=== PATIENT | male | born 1955 | race Caucasian/White ===

== ENCOUNTER → 2019-01-10 07:28 | Outpatient (CLI) | payer MEDICARE, SELFPAY ==
--- NOTE | 2019-01-10 07:31 | DI.US.S_ITS ---
PROCEDURE: US ABD AORTA ANEURYSM SCREEN INDICATIONS: HISTORY SMOKING TECHNIQUE: Real time scanning was performed of the aorta and iliac arteries, with image documentation. COMPARISON: None. FINDINGS: Aorta: Proximal aortic diameter measures 2.7 cm. Mid-aorta measures 1.9 cm. Distal aortic diameter is 1.6 cm. Iliac arteries: Right common iliac artery measures 1.2 cm. Left common iliac artery measures 1.2 cm. IMPRESSION: No abdominal aortic or proximal common iliac artery aneurysm. Dictated by: Brian Wick [facility] Interpreted: Pat Barcenas MD on 01/10/2019 at 8:10 Approved by: Pat Barcenas MD, PhD on 01/10/2019 at 14:36
== END ==
PROVIDERS: PCP Student in an Organized Health Care Education/Training Program; Visit Provider Student in an Organized Health Care Education/Training Program
DX: Z13.6 Encounter for screening for cardiovascular disorders (principal); Z87.891 Personal history of nicotine dependence
CPT/HCPCS: 76706

== ENCOUNTER → 2019-02-09 08:54 | Outpatient (CLI) | payer MEDICARE, SELFPAY ==
[2019-02-09 10:21] LABS: Vitamin D 25 Hydroxy (D3) 49.4 ng/mL (30.0-100.0)
[2019-02-09 10:38] LABS: Prostate Specific Antigen Scrn 0.791 ng/mL (0.1-4.0)
== END ==
PROVIDERS: PCP Student in an Organized Health Care Education/Training Program; Visit Provider Student in an Organized Health Care Education/Training Program
DX: Z12.5 Encounter for screening for malignant neoplasm of prostate (principal); E55.9 Vitamin D deficiency, unspecified
CPT/HCPCS: 36415; 82306; G0103

== ENCOUNTER → 2019-12-19 10:09 | Outpatient (CLI) | payer MEDICARE, SELFPAY ==
[2019-12-19 11:11] LABS: BUN Creatinine Ratio 14.5 (6-22); Blood Urea Nitrogen 16 mg/dL (9-20); Calcium 10.1 mg/dL (8.4-10.2); Carbon Dioxide 29 mmol/L (22-32); Chloride 96 mmol/L (98-107); Estimated Glomerular Filt Rate > 60.0 mL/min (>60); Glucose 104 mg/dL (80-110); HEMOLYSIS < 15 (0-50); Potassium 4.9 mmol/L (3.4-5.1); Sodium 135 mmol/L (137-145)
== END ==
PROVIDERS: PCP Student in an Organized Health Care Education/Training Program; Visit Provider Student in an Organized Health Care Education/Training Program
DX: I10 Essential (primary) hypertension (principal)
CPT/HCPCS: 36415; 80048

== ENCOUNTER 2020-01-17 07:36 | Day surgery (SDC) | payer MEDICARE, SELFPAY ==
--- NOTE | 2020-01-17 | PATH_ITS ---
[facility] Accession Number: [id number] . 01 Material submitted: . colon - COLON POLYP AT 50CM . 02 Diagnosis: Colon Polyp at 50 cm, Biopsy: Portions of serrated lesion x3, favor sessile serrated adenoma. MRV 01/18/2020 1040 Local . 02 Electronically signed: . Peg De La Garza MD, Pathologist NPI- [id number] . 01 Gross description: . COLON POLYP AT 50CM: Received in formalin are 3 fragment(s) of gudino, soft tissue measuring 0.1 x 0.1 x 0.1 cm in aggregate submitted entirely in 1 cassette(s) /[facility] 01/17/2020 2227 Local . 02 Pathologist provided ICD-10: K63.5 . 02 CPT . 233186 Performed at: 01 [facility] [address] [id number] MD Caleb Song MD Phone: [phone] Performed at: 02 [facility] [address] [place] [employer], [place] [id number] MD Sherrill Rubi MD Phone: [phone]
[2020-01-17 07:56] VITALS: BMI 29.0
[2020-01-17 08:02] VITALS: BP 133/84; PULSE 66; RESP 16; TEMP 36.1; O2SAT 99
[2020-01-17] MEDS: SODIUM CHLORIDE 0.9% 1,000 ML 200 ML IV (08:09)
--- NOTE | 2020-01-17 08:57 | PM.HP.1 ---
History of Present Illness History of Present Illness Date Patient Seen: 01/17/20 Time Patient Seen: 08:57 Chief complaint: [id number] SCREENING COLONOSCOPY Narrative: The patient is a gentleman who had a colonoscopy 5 years ago. He has a history of polyps. No family history of colon cancer. He is here for screening exam. Patient History Medical History Colon polyps (Chronic ~2009) Hyperlipidemia (Chronic ~2016) Hypertension (Chronic ~2004) Surgical History Anesthesia (Resolved) Status post knee surgery Tubular adenoma (Resolved ~2008) Family & Social History Family History Father Coronary artery disease involving [place] coronary artery of [place] heart, angina presence unspecified Mother No problems noted. Social History: household members spouse Tobacco & Substance use: Smoking Status Former smoker alcohol intake current alcohol intake frequency 0-2 drinks per day Substance Use Type does not use Meds Home Medications and Allergies Home Medications Medication Instructions Recorded Confirmed Type cholecalciferol (vitamin D3) 2,000 iu PO QDAY #0 09/26/12 01/17/20 History [Vitamin D3] multivitamin 1 cap PO DAILY #0 09/26/12 01/17/20 History aspirin 81 mg tablet,delayed 81 mg PO DAILY 04/10/18 01/17/20 History release atorvastatin 40 mg tablet 40 mg PO HS #90 tab 10/18/19 01/17/20 Rx lisinopril 40 mg tablet 40 mg PO Q DAY #90 tab 10/18/19 01/17/20 Rx metoprolol succinate 100 mg 100 mg PO QDAY #90 tab 12/13/19 01/17/20 Rx tablet,extended release 24 hr chlorthalidone 25 mg tablet 12.5 mg PO QAM #45 tab 12/19/19 01/17/20 Rx sildenafil (pulm.hypertension) 20 20 mg PO TID PRN #30 tab 12/19/19 01/17/20 Rx mg tablet Allergies Allergy/AdvReac Type Severity Reaction Status Date / Time erythromycin base Allergy Unknown Hand Verified 01/17/20 07:52 swelling Review of Systems Review of Systems ROS: Yes All systems reviewed with the patient and are negative except as otherwise documented Eyes Comments: Wears glasses Exam Vital Signs (past 8 hours): - 01/17/20 08:02 Temperature 97.0 F L Pulse Rate 66 Respiratory Rate 16 Blood Pressure 133/84 Pulse Oximetry 99 Oxygen Delivery Method Room Air Narrative Exam Narrative: Pleasant cooperative patient no apparent distress. Lungs are clear to auscultation. No rales or rhonchi. Heart regular rate and rhythm no murmur gallop. Abdomen is soft nontender without mass. No obvious hernias. Patient is alert and oriented x3. Assessment & Plan Assessment & Plan narrative: The patient for a screening colonoscopy. I have discussed the procedure with them. Risks of bleeding, perforation which would necessitate major operation, failure to find remove all lesions, the potential tattoo were all discussed. All questions were answered. They wished to proceed.
--- NOTE | 2020-01-17 08:58 | PM.PREOP ---
Pre-operative Note Interval Note History & Physical reviewed/Exam performed by Physician: Yes Changes to H&P: No ASA Class (for procedural sedation): II
[2020-01-17] MEDS: fentaNYL 250 MCG/5 ML INJ IV (09:25)
[2020-01-17] MEDS: MIDAZOLAM 5 MG/5 ML VIAL IV (09:26)
--- NOTE | 2020-01-17 09:28 | PM.OP.ENDO ---
Operative Date/Time/Diagnoses Date of procedure: 01/17/20 Time of procedure: 09:28 Pre-op diagnosis: Screening examination. Last exam 5 years ago. The patient has personal history of polyps. Post-op diagnosis: same (Diverticulosis sigmoid colon. One small polyp at 50 cm from the anal verge.) Procedure & Clinicians Study performed: Colonoscopy with cold biopsy Same procedure as scheduled: Yes Indications: Screening Surgeon: Malachi Bay Procedure Notes SCOAP/Timeout: Perform Procedure in detail: The patient was placed in the left lateral decubitus position and underwent IV sedation directed by the surgeon consisting of fentanyl and Versed. Digital exam was remarkable for an enlarged hard prostate. The scope was inserted and advanced through the rectum into the sigmoid, descending, transverse, and ascending colon. The patient was noted to have sigmoid diverticulosis. The cecum was reached identified by the ileocecal valve and the appendiceal opening. The scope was gradually brought out. One Polyp were found at 50 cm from the anal verge. It was small and was removed with biopsy forceps. The scope ultimately was retroflexed in the rectum. The appearance was normal. The scope was removed and the patient tolerated the procedure well. The prep was very good Scope withdrawal time: 11 minutes total Sedation minutes: 23 Findings: diverticulosis and polyp (Small polyp at 50 cm) Specimen(s): other (Polyps) Complications: none Post-procedure Recommendations: Colonscopy in 5 years Follow up: as needed Disposition: PACU
[2020-01-17 09:32] VITALS: BP 103/69; PULSE 57; RESP 14; TEMP 36.3; O2SAT 96
[2020-01-17 09:37] VITALS: BP 99/66; PULSE 54; RESP 15; O2SAT 96
[2020-01-17 09:47] VITALS: BP 117/76; PULSE 57; RESP 15; TEMP 37.3; O2SAT 97
== END 2020-01-17 10:09 | disposition home or self-care (01) ==
PROVIDERS: PCP Student in an Organized Health Care Education/Training Program; Referring Provider Specialist; Visit Provider Specialist
PROC: 0DJD8ZZ Inspection of Lower Intestinal Tract, Via Natural or Artificial Opening Endoscopic (ICD-10-PCS; CPT 45378; principal; 2020-01-17 08:45)
DX: Z12.11 Encounter for screening for malignant neoplasm of colon (principal); N40.0 Benign prostatic hyperplasia without lower urinary tract symptoms; K57.30 Diverticulosis of large intestine without perforation or abscess without bleeding; K63.5 Polyp of colon
CPT/HCPCS: 45380; 99152; J2250; J3010

== ENCOUNTER → 2020-02-06 08:30 | Outpatient (CLI) | payer MEDICARE, SELFPAY ==
[2020-02-06 10:28] LABS: Prostate Specific Antigen Scrn 0.836 ng/mL (0.1-4.0)
== END ==
PROVIDERS: PCP Student in an Organized Health Care Education/Training Program; Referring Provider Student in an Organized Health Care Education/Training Program; Visit Provider Student in an Organized Health Care Education/Training Program
DX: Z12.5 Encounter for screening for malignant neoplasm of prostate (principal)
CPT/HCPCS: 36415; G0103

== ENCOUNTER → 2021-02-11 12:27 | Outpatient (CLI) | payer MEDICARE, SELFPAY ==
[2021-02-11] MEDS: COVID-19 VACC #1, MRNA(MOD) 100 MCG/0.5 ML VIAL IM (12:35)
== END ==
PROVIDERS: PCP Student in an Organized Health Care Education/Training Program; Visit Provider Internal Medicine
DX: Z23 Encounter for immunization (principal)
CPT/HCPCS: 0011A; 91301

== ENCOUNTER → 2021-03-11 11:55 | Outpatient (CLI) | payer MEDICARE, SELFPAY ==
[2021-03-11] MEDS: COVID-19 VACC #2, MRNA(MOD) 100 MCG/0.5 ML VIAL IM (12:05)
== END ==
PROVIDERS: PCP Student in an Organized Health Care Education/Training Program; Visit Provider Internal Medicine
DX: Z23 Encounter for immunization (principal)
CPT/HCPCS: 0012A; 91301

== ENCOUNTER → 2021-04-09 09:46 | Outpatient (CLI) | payer MEDICARE, SELFPAY ==
[2021-04-09 10:51] LABS: HEMOLYSIS < 15 (0-50)
[2021-04-09 10:59] LABS: BUN Creatinine Ratio 18.4 (6-22); Blood Urea Nitrogen 18 mg/dL (9-20); Calcium 9.8 mg/dL (8.4-10.2); Carbon Dioxide 28 mmol/L (22-32); Chloride 98 mmol/L (98-107); Estimated Glomerular Filt Rate > 60.0 mL/min (>60); Glucose 102 mg/dL (80-110); Potassium 4.3 mmol/L (3.4-5.1); Sodium 136 mmol/L (137-145)
[2021-04-09 19:37] LABS: Prostate Specific Antigen Scrn 0.777 ng/mL (0.1-4.0)
== END ==
PROVIDERS: PCP Student in an Organized Health Care Education/Training Program; Referring Provider Student in an Organized Health Care Education/Training Program; Visit Provider Student in an Organized Health Care Education/Training Program
DX: Z12.5 Encounter for screening for malignant neoplasm of prostate (principal); I10 Essential (primary) hypertension
CPT/HCPCS: 36415; 80048; G0103

== ENCOUNTER → 2021-10-15 09:56 | Outpatient (CLI) | payer MEDICARE, SELFPAY ==
--- NOTE | 2021-10-15 09:57 | DI.RAD.S_ITS ---
PROCEDURE: XR CALCANEOUS RT MIN 2V INDICATIONS: Posterior heel pain TECHNIQUE: Two views of the calcaneus were acquired. COMPARISON: None. FINDINGS: Bones: No acute fracture. Scattered degenerative subchondral sclerosis and spurring. Plantar and posterior calcaneal spurring. Chronic os peroneum Soft tissues: Unremarkable appearance IMPRESSION: Posterior and plantar calcaneal spurring. Diffuse hindfoot and midfoot joint degeneration. Dictated by: Obdulio Singh M.D. on 10/15/2021 at 15:14 Approved by: Obdulio Singh M.D. on 10/15/2021 at 15:15
== END ==
PROVIDERS: PCP Student in an Organized Health Care Education/Training Program; Referring Provider Student in an Organized Health Care Education/Training Program; Visit Provider Student in an Organized Health Care Education/Training Program
DX: M19.071 Primary osteoarthritis, right ankle and foot (principal); M77.31 Calcaneal spur, right foot; M79.671 Pain in right foot
CPT/HCPCS: 73650

== ENCOUNTER → 2021-12-21 09:43 | Outpatient (CLI) | payer MEDICARE, SELFPAY ==
--- NOTE | 2021-12-21 09:44 | DI.RAD.S_ITS ---
PROCEDURE: XR RIBS LT MIN 3V W CXR1V INDICATIONS: fall TECHNIQUE: 2 views of the left ribs were acquired, along with a single view chest. COMPARISON: None. FINDINGS: Surgical changes and devices: None. Bones and chest wall: No fractures or dislocations. No suspicious bony lesions. Overlying soft tissues appear unremarkable. Lungs and pleura: No pleural effusions or pneumothorax. Lungs appear clear. Mediastinum: Mediastinal contours appear normal. Heart size is normal. IMPRESSION: No gross displaced left rib fracture is seen. No acute cardiopulmonary pathology. Dictated by: Fidel Grace M.D. on 12/21/2021 at 10:20 Approved by: Fidel Grace M.D. on 12/21/2021 at 10:23
== END ==
PROVIDERS: PCP Student in an Organized Health Care Education/Training Program; Referring Provider Physician Assistant; Visit Provider Physician Assistant
DX: R10.9 Unspecified abdominal pain (principal)
CPT/HCPCS: 71101

== ENCOUNTER → 2022-04-28 16:24 | Outpatient (CLI) | payer MEDICARE, SELFPAY ==
[2022-04-28 17:50] LABS: BUN Creatinine Ratio 17.9 (6-22); Blood Urea Nitrogen 20 mg/dL (9-20); Calcium 9.3 mg/dL (8.4-10.2); Carbon Dioxide 27 mmol/L (22-32); Chloride 96 mmol/L (98-107); Estimated Glomerular Filt Rate > 60 mL/min (>60); Glucose 90 mg/dL (80-110); HEMOLYSIS < 15 (0-50); Potassium 4.5 mmol/L (3.4-5.1); Sodium 131 mmol/L (137-145)
== END ==
PROVIDERS: PCP Student in an Organized Health Care Education/Training Program; Referring Provider Student in an Organized Health Care Education/Training Program; Visit Provider Student in an Organized Health Care Education/Training Program
DX: Z12.5 Encounter for screening for malignant neoplasm of prostate (principal); I10 Essential (primary) hypertension
CPT/HCPCS: 36415; 80048; G0103

== ENCOUNTER → 2023-05-11 07:02 | Outpatient (CLI) | payer MEDICARE, SELFPAY ==
[2023-05-11 08:46] LABS: Add Manual Diff / Slide Review NO; Basophils Absolute Auto 0 /uL (0-100); Basophils Percent Auto 0.5 % (0-2); Eosinophils Absolute Auto 100 /uL (0-450); Hemoglobin 14.8 g/dL (13.5-17.5); Lymphocytes Absolute Auto 1700 /uL (1100-4500); Lymphocytes Percent Auto 20.8 % (25-40); Mean Corpuscular HGB Conc 34.3 % (30-36); Mean Corpuscular Hemoglobin 29.6 PG (26-34); Mean Corpuscular Volume 86.3 fL (80-100); Monocytes Absolute Auto 600 /uL (0-900); Monocytes Percent Auto 7.6 % (3-14); Neutrophils Absolute Auto 5600 /uL (1500-7000); Neutrophils Percent Auto 70.1 % (50-75); Platelet Count 278 X10^3/uL (150-400); Red Blood Cell Count 4.98 X10^6/uL (4.5-5.9); Red Cell Distribution Width 13.8 % (11.6-14.8)
[2023-05-11 09:04] LABS: Alanine Aminotransferase 36 IU/L (<50); Albumin 4.3 g/dL (3.5-5.0); Albumin Globulin Ratio 1.6 (1.0-2.8); Alkaline Phosphatase 93 U/L (38-126); Aspartate Aminotransferase 40 IU/L (17-59); BUN Creatinine Ratio 17.7 (6-22); Bilirubin Total 1.4 mg/dL (0.2-1.3); Blood Urea Nitrogen 17 mg/dL (9-20); Calcium 9.5 mg/dL (8.4-10.2); Carbon Dioxide 29 mmol/L (22-32); Chloride 92 mmol/L (98-107); Cholesterol 120 mg/dL (140-199); Estimated Glomerular Filt Rate > 60 mL/min (>60); Globulin 2.7 g/dL (1.7-4.1); Glucose 113 mg/dL (80-110); HDL Cholesterol 43 mg/dL (40-60); HEMOLYSIS 19 (0-50); LDL Cholesterol Calculated 44 mg/dL (<100); Potassium 4.1 mmol/L (3.4-5.1); Sodium 130 mmol/L (137-145); Triglycerides 164 mg/dL (35-150)
[2023-05-11 09:31] LABS: Prostate Specific Antigen 0.978 ng/mL (0.10-4.00)
[2023-05-11 10:31] LABS: Appearance Urine UA CLEAR; Bilirubin Urine UA NEGATIVE (NEGATIVE); Color Urine UA YELLOW; Glucose Urine UA NEGATIVE (Negative); Ketones Urine UA NEGATIVE (NEGATIVE); Leukocyte Esterase Urine UA NEGATIVE (NEGATIVE); Nitrite Urine UA NEGATIVE (Negative); Occult Blood Urine UA NEGATIVE (Negative); Protein Urine UA 1+ (Negative); pH Urine UA 6.5 (4.5-8.0)
[2023-05-11 10:37] LABS: Bacteria Urine None Seen; Culture Indicated Urine Cult Not Indicated; RBC Urine None Seen (0-5/HPF); Squamous Epithelial Cell Urine None Seen (0-5/HPF); Urine Comments Microscopic Normal; WBC Urine None Seen (0-5/HPF)
[2023-05-12 05:53] LABS: Labcorp Hemoglobin (Hb) A1c 5.8 % (4.8-5.6)
== END ==
PROVIDERS: PCP Pediatrics; Referring Provider Pediatrics; Visit Provider Pediatrics
DX: E66.3 Overweight (principal); I10 Essential (primary) hypertension; E78.2 Mixed hyperlipidemia; N40.0 Benign prostatic hyperplasia without lower urinary tract symptoms
CPT/HCPCS: 36415; 80053; 80061; 81001; 83036; 84153; 85025

== ENCOUNTER 2023-05-27 10:37 | Day surgery (SDC) | payer MEDICARE, SELFPAY ==
[2023-05-27] VITALS (7 sets, daily range): BP systolic 80–121; BP diastolic 52–75; PULSE 59–80; RESP 11–16; TEMP 35.6–36.3; O2SAT 95–99; BMI 28.3
--- NOTE | 2023-05-27 | PATH_ITS ---
[facility] Accession Number: [id number] No. of containers..04 Tissue . 01 Material submitted: . PART A: rectum - RECTAL POLYP PART B: colon - DESCENDING COLON POLYP PART C: colon - DESCENDING COLON BIOPSY PART D: colon - SPLENIC FLEXURE POLYP . 01 Diagnosis: A. Rectal Polyp: Multiple (approximately three) portions of hyperplastic polyp. . B. Descending Colon Polyp: Superficial portion of colorectal mucosa witha benign lymphoid aggregate. . C. Descending Colon Polyp: Hyperplastic polyp. . D. Splenic Flexure Polyp: Superficial portion of colorectal mucosa x1 with a benign lymphoid aggregate and focal hyperplastic mucosal change. [facility] 06/08/2023 1705 Local . 01 Electronically signed: . Peg De La Garza MD, Pathologist NPI- [id number] . 01 Gross description: . A. Received in formalin, labeled with the patient's name, , and designated rectal polyp, and consists of multiple gudino soft tissue fragments aggregating to 1.1 x 0.5 x 0.2 cm. The specimen is filtered and submitted entirely in cassette A1. B. Received in formalin, labeled with the patient's name, , and designated descending colon polyp, and consists of a single gudino soft tissue fragment measuring 0.2 cm in greatest dimension. Submitted entirely in cassette B1. C. Received in formalin, labeled with the patient's name, , and designated descending colon biopsy, and consists of a single gudino soft tissue fragment measuring 0.3 cm in greatest dimension. Submitted entirely in cassette C1. D. Received in formalin, labeled with the patient's name, , and designated splenic flexure polyp, and consists of a single gudino soft tissue fragment measuring 0.2 cm in greatest dimension. Submitted entirely in cassette D1. ([id number]) /[facility] 06/04/2023 1357 Local . 01 Pathologist provided ICD-10: K63.5 . 01 CPT . 970334, 073803, 585682, 458508 Specimen Comment: A courtesy copy of this report has been sent to [facility] Pathology Performed at: 01 [facility] [address] [place] [address], [place], [place] [id number] MD Caleb Song MD Phone: [phone]
[2023-05-27] MEDS: LACTATED RINGERS 1,000 ML 42 ML IV (11:23)
--- NOTE | 2023-05-27 12:31 | P.HP_ITS ---
History of Present Illness History of Present Illness Date Patient Seen: 05/27/23 Time Patient Seen: 12:31 Chief complaint: Dx Colonoscopy, history of polyps Narrative: Mr. Ladi pablo presents today for a follow-up colonoscopy; it has been 3 years since his last colonoscopy that was done here at [facility] with Dr. Bay in 12/2019. There was 1 polyp that was seen and removed during that exam at 50 cm by the scope it was described as small. The pathology came back as three pieces of a sessile serrated adenoma. Mr. Ladi pablo understands that because of the way that polyp looked under the microscope he was asked to back 3 years rather than his normal 5, which she has been having she started screening because, has had polyps. He has no family history of colon cancer and has not had any concerning symptoms. [facility] Medical History Actinic keratoses Colon polyps (~2008) Hyperlipidemia (~2015) Hypertension (~2003) Surgical History Anesthesia Status post knee surgery Tubular adenoma (~2008) Family History Father Coronary artery disease involving [place] coronary artery of [place] heart, angina presence unspecified Mother No problems noted. Social History household members: spouse Smoking Status: Former smoker alcohol intake: current Meds Home Medications and Allergies Home Medications Medication Instructions Recorded Confirmed Type cholecalciferol (vitamin D3) 50 2,000 iu PO QDAY ##0 09/26/12 05/27/23 History mcg (2,000 unit) capsule (Vitamin D3) multivitamin 1 cap PO DAILY ##0 09/26/12 05/27/23 History aspirin 81 mg tablet,delayed 81 mg PO DAILY 04/10/18 05/27/23 History release (Adult Aspirin Regimen) sildenafil (pulm.hypertension) 20 20 - 100 mg PO DAILY PRN sexual 04/28/22 05/27/23 Rx mg tablet activity #30 tabs chlorthalidone 25 mg tablet 25 mg PO DAILY #90 tabs 07/07/22 05/27/23 Rx metoprolol succinate 100 mg 100 mg PO QDAY #90 tabs 11/17/22 05/27/23 Rx tablet,extended release 24 hr (Toprol XL) lisinopril 40 mg tablet 40 mg PO Q DAY #90 tabs 03/28/23 05/27/23 Rx loratadine 10 mg tablet (Claritin) 10 mg PO DAILY #30 tabs 05/12/23 05/27/23 Rx atorvastatin 40 mg tablet 40 mg PO HS #90 tabs 05/16/23 05/27/23 Rx tamsulosin 0.4 mg capsule 0.4 mg PO DAILY enlarged prostate 05/26/23 05/27/23 Rx #90 caps Allergies Allergy/AdvReac Type Severity Reaction Status Date / Time erythromycin base Allergy Unknown Hand Verified 05/27/23 10:50 swelling Exam Vital Signs (past 8 hours): - 05/27/23 10:56 Temperature 96.1 F L Pulse Rate 80 Respiratory Rate 16 Blood Pressure 121/75 Pulse Oximetry 99 Oxygen Delivery Method Room Air Oxygen Delivery Method Room Air Const General: cooperative, healthy appearing and comfortable HENNE Head: normal to inspection Eyes General: appearance normal, both eyes and all related structures Resp Effort & Inspection: normal respiratory effort and able to speak in complete sentences GI Palpation: soft and No tender Assessment & Plan Assessment and plan (1) History of colon polyps: Status: Acute (2) Screening for colon cancer: Status: Acute Assessment & Plan narrative: Presents today for screening colonoscopy I discussed the risks benefits and alternatives including but not limited to perforation of the colon and an incomplete exam he fully understands these risks and would like to proceed.
--- NOTE | 2023-05-27 13:24 | PM.OP.COLON ---
Operative Date/Time/Diagnoses Date of procedure: 05/27/23 Time of procedure: 13:24 Pre-op diagnosis: History of polyps, colon cancer screening Post-op diagnosis: same Procedure Notes Procedure in detail: There were several small hyperplastic looking rectal polyps but 1 of the group that was significantly larger this 1 snared with a stephie cold snare and removed in total the remainder of the colon was advanced through to the cecum and a photograph obtained of the orifice the bowel prep was borderline good with a few larger darker areas that were irrigated. I would call it a [place] bowel score of 2. With irrigation I was able to obtain a good exam. There were multiple large diverticula several photographs were taken. These diverticula were found throughout the colon though centered in the sigmoid also seen in the right and transverse colon. Upon withdrawal there were 2 polyps seen in the either transverse or descending colon. The 1st 1 of which was potentially just a change in the mucosa, the 2nd 1 was a little bit larger but not really sure if that represented a true polyp. At the splenic flexure we did see a polyp that was removed with the biopsy forceps. It was a small polyp. Further withdrawal revealed no additional polyps the scope was then retroflexed and the hemorrhoidal piles appeared somewhat prominent and were photographed. Findings: divertiulosis and polyp(s) Specimen(s): other (Rectal polyp, descending colon polyp, descending colon biopsy, splenic flexure) Post-procedure Plan for aftercare: Pending on pathology probably 3-5 year follow-up but we will see what the pathology shows it could be as far as 7. I do recommend a fiber supplement Disposition: PACU
== END 2023-05-27 14:30 | disposition home or self-care (01) ==
PROVIDERS: PCP Pediatrics; Referring Provider Surgery; Visit Provider Surgery
PROC: 0DJD8ZZ Inspection of Lower Intestinal Tract, Via Natural or Artificial Opening Endoscopic (ICD-10-PCS; CPT 45378; principal; 2023-05-27 11:45)
DX: Z12.11 Encounter for screening for malignant neoplasm of colon (principal); Z86.010 Personal history of colon polyps; K57.30 Diverticulosis of large intestine without perforation or abscess without bleeding; K62.1 Rectal polyp; K63.5 Polyp of colon
CPT/HCPCS: 45385; 45380; J2704

== ENCOUNTER → 2023-09-01 09:10 | Outpatient (CLI) | payer MEDICARE, SELFPAY ==
--- NOTE | 2023-09-01 | DI.MRI.S_ITS ---
PROCEDURE: MR KNEE RT WO CON INDICATIONS: Unilateral primary osteoarthritis, right knee TECHNIQUE: Noncontrast sagittal PD fast spin echo and T2 fast spin echo with fat saturation, sagittal 3-D FLASH with fat saturation; coronal T1 spin echo and PD fast spin echo with fat saturation, and axial PD fast spin echo with fat saturation through the knee. COMPARISON: [facility], CR, XR KNEE 4+ VIEWS RIGHT, 07/20/2023, 9:56. FINDINGS: Image quality: Excellent. Menisci: There is complex tear involving the body of the medial meniscus, which is truncated. There is degenerative tear of the posterior horn and anterior horn of the medial meniscus. The lateral meniscus demonstrates normal morphology and internal signal. The meniscal root ligaments appear intact. Cruciate ligaments: The anterior and posterior cruciate ligaments appear intact. Medial structures: There is grade 1 sprain of the medial collateral ligament. The pos semimembranosus tendon insertions and meniscocapsular junction appear intact. Visualized portions of the pes anserinus tendons appear normal. No abnormal bursal fluid. Lateral structures: The lateral collateral ligament, long and short heads of the biceps femoris tendon appear intact. The popliteus tendon appears normal. Iliotibial band appears normal. Anterior structures: The quadriceps and patellar tendons appear intact. Patellar alignment is normal. No femoral trochlear dysplasia or ventral trochlear prominence. No edema in the infrapatellar fat pad. Bones and cartilage: No bone marrow contusions or fractures. Tricompartmental cartilage thinning and fibrillation, most pronounced in the medial femorotibial compartment and medial facet of patella. Joint space: There is small knee joint fluid. There are multiple small intercondylar notch cyst in the posterior knee joint adjacent to the PCL. No Odom's cyst. Mild thickening of synovial plicae consistent with mild synovitis. IMPRESSION: 1. Medial meniscal tear. The body of the medial meniscus is truncated. 2. Grade 1 sprain of MCL. 3. Tricompartmental cartilage loss. 4. Mild synovitis and small knee joint effusion. Dictated by: Carlos A Mora M.D. on 09/01/2023 at 16:02 Approved by: Carlos A Mora M.D. on 09/01/2023 at 16:09
== END ==
PROVIDERS: PCP Family Medicine; Referring Provider Orthopaedic Surgery Adult Reconstructive Orthopaedic Surgery; Visit Provider Orthopaedic Surgery Adult Reconstructive Orthopaedic Surgery
DX: M17.11 Unilateral primary osteoarthritis, right knee (principal); S83.241A Other tear of medial meniscus, current injury, right knee, initial encounter; S83.411A Sprain of medial collateral ligament of right knee, initial encounter; M65.861 Other synovitis and tenosynovitis, right lower leg; M25.461 Effusion, right knee
CPT/HCPCS: 73721

== ENCOUNTER → 2023-09-14 10:52 | Outpatient (CLI) | payer MEDICARE, SELFPAY ==
[2023-09-14 11:37] LABS: Add Manual Diff / Slide Review NO; Basophils Absolute Auto 0 /uL (0-100); Eosinophils Absolute Auto 0 /uL (0-450); Eosinophils Percent Auto 0.8 % (2-4); Hematocrit 38.8 % (41-53); Hemoglobin 13.4 g/dL (13.5-17.5); Lymphocytes Absolute Auto 1500 /uL (1100-4500); Lymphocytes Percent Auto 32.3 % (25-40); Mean Corpuscular HGB Conc 34.5 % (30-36); Mean Corpuscular Hemoglobin 29.8 PG (26-34); Mean Corpuscular Volume 86.2 fL (80-100); Monocytes Absolute Auto 700 /uL (0-900); Monocytes Percent Auto 14.7 % (3-14); Neutrophils Absolute Auto 2300 /uL (1500-7000); Neutrophils Percent Auto 51.2 % (50-75); Platelet Count 244 X10^3/uL (150-400); Red Cell Distribution Width 13.4 % (11.6-14.8); White Blood Cell Count 4.6 X10^3/uL (4.5-11.0)
[2023-09-14 11:48] LABS: Hemoglobin A1C% w Est Avg Glu 5.7 % (4.0-6.0)
[2023-09-14 12:35] LABS: BUN Creatinine Ratio 14.4 (6-22); Blood Urea Nitrogen 15 mg/dL (9-20); Calcium 9.4 mg/dL (8.4-10.2); Carbon Dioxide 28 mmol/L (22-32); Chloride 92 mmol/L (98-107); Estimated Glomerular Filt Rate > 60 mL/min (>60); Glucose 103 mg/dL (80-110); HEMOLYSIS < 15 (0-50); Potassium 3.8 mmol/L (3.4-5.1); Sodium 128 mmol/L (137-145)
[2023-09-14 12:42] LABS: Prealbumin 29.3 mg/dL (17.6-36.0)
[2023-09-14 18:03] LABS: Vitamin D 25 Hydroxy (D3) 50.1 ng/mL (30.0-100.0)
== END ==
PROVIDERS: PCP Family Medicine; Referring Provider Orthopaedic Surgery Adult Reconstructive Orthopaedic Surgery; Visit Provider Orthopaedic Surgery Adult Reconstructive Orthopaedic Surgery
DX: Z01.818 Encounter for other preprocedural examination (principal); R73.9 Hyperglycemia, unspecified; E55.9 Vitamin D deficiency, unspecified; R77.0 Abnormality of albumin; Z01.812 Encounter for preprocedural laboratory examination
CPT/HCPCS: 36415; 80048; 82306; 83036; 84134; 85025; 93005; 93010

== ENCOUNTER → 2024-01-02 07:17 | Outpatient (CLI) | payer MEDICARE, SELFPAY ==
[2024-01-02 08:16] LABS: BUN Creatinine Ratio 14.6 (6-22); Blood Urea Nitrogen 14 mg/dL (9-20); Calcium 9.9 mg/dL (8.4-10.2); Carbon Dioxide 29 mmol/L (22-32); Chloride 97 mmol/L (98-107); Estimated Glomerular Filt Rate > 60 mL/min (>60); Glucose 115 mg/dL (80-110); HEMOLYSIS < 15 (0-50); Potassium 4.4 mmol/L (3.4-5.1); Sodium 134 mmol/L (137-145)
== END ==
PROVIDERS: PCP Family Medicine; Referring Provider Family Medicine; Visit Provider Family Medicine
DX: I10 Essential (primary) hypertension (principal); E78.1 Pure hyperglyceridemia; E78.5 Hyperlipidemia, unspecified
CPT/HCPCS: 36415; 80048

== ENCOUNTER → 2024-04-30 09:24 | Outpatient (CLI) | payer MEDICARE, SELFPAY ==
[2024-04-30 11:04] LABS: Hematocrit 41.7 % (41-53); Hemoglobin 14.3 g/dL (13.5-17.5); Mean Corpuscular HGB Conc 34.2 % (30-36); Mean Corpuscular Hemoglobin 29.4 PG (26-34); Mean Corpuscular Volume 85.9 fL (80-100); Platelet Count 261 X10^3/uL (150-400); Red Blood Cell Count 4.86 X10^6/uL (4.5-5.9); Red Cell Distribution Width 13.7 % (11.6-14.8); White Blood Cell Count 5.5 X10^3/uL (4.5-11.0)
[2024-04-30 11:25] LABS: Alanine Aminotransferase 40 IU/L (<50); Albumin 4.3 g/dL (3.5-5.0); Albumin Globulin Ratio 1.6 (1.0-2.8); Alkaline Phosphatase 89 U/L (38-126); Aspartate Aminotransferase 46 IU/L (17-59); BUN Creatinine Ratio 16.5 (6-22); Blood Urea Nitrogen 15 mg/dL (9-20); Calcium 9.1 mg/dL (8.4-10.2); Carbon Dioxide 28 mmol/L (22-32); Chloride 98 mmol/L (98-107); Cholesterol 110 mg/dL (140-199); Estimated Glomerular Filt Rate > 60 mL/min (>60); Globulin 2.7 g/dL (1.7-4.1); Glucose 110 mg/dL (80-110); HDL Cholesterol 43 mg/dL (40-60); HEMOLYSIS < 15 (0-50); LDL Cholesterol Calculated 47 mg/dL (<100); Potassium 4.3 mmol/L (3.4-5.1); Sodium 132 mmol/L (137-145); Triglycerides 99 mg/dL (35-150)
[2024-04-30 11:28] LABS: Creatinine Urine Random 72.34 mg/dL
[2024-04-30 11:32] LABS: Microalbumin Urine Random < 0.6 mg/dL (0-1.6)
[2024-04-30 11:56] LABS: Prostate Specific Antigen Scrn 1.01 ng/mL (0.1-4.0)
== END ==
PROVIDERS: PCP Family Medicine; Referring Provider Family Medicine; Visit Provider Family Medicine
DX: E87.1 Hypo-osmolality and hyponatremia (principal); I10 Essential (primary) hypertension; Z12.5 Encounter for screening for malignant neoplasm of prostate; E78.5 Hyperlipidemia, unspecified
CPT/HCPCS: 36415; 80053; 80061; 82043; 82570; 85027; G0103

== ENCOUNTER → 2025-05-22 06:58 | Outpatient (CLI) | payer MEDICARE, SELFPAY ==
[2025-05-22 07:41] LABS: Hematocrit 43.1 % (41-53); Hemoglobin 14.9 g/dL (13.5-17.5); Mean Corpuscular HGB Conc 34.6 % (30-36); Mean Corpuscular Hemoglobin 30.1 PG (26-34); Platelet Count 295 X10^3/uL (150-400); Red Blood Cell Count 4.95 X10^6/uL (4.5-5.9); Red Cell Distribution Width 13.8 % (11.6-14.8); White Blood Cell Count 5.3 X10^3/uL (4.5-11.0)
[2025-05-22 08:01] LABS: Creatinine Urine Random 230.52 mg/dL
[2025-05-22 08:02] LABS: Alanine Aminotransferase 28 IU/L (<50); Albumin 4.3 g/dL (3.5-5.0); Albumin Globulin Ratio 1.6 (1.0-2.8); Alkaline Phosphatase 78 U/L (38-126); Aspartate Aminotransferase 38 IU/L (17-59); Bilirubin Total 0.8 mg/dL (0.2-1.3); Blood Urea Nitrogen 17 mg/dL (9-20); Calcium 9.8 mg/dL (8.4-10.2); Carbon Dioxide 28 mmol/L (22-32); Chloride 95 mmol/L (98-107); Cholesterol 109 mg/dL (140-199); Estimated Glomerular Filt Rate > 60 mL/min (>60); Globulin 2.7 g/dL (1.7-4.1); Glucose 116 mg/dL (70-99); HDL Cholesterol 43 mg/dL (40-60); HEMOLYSIS < 15 (0-50); LDL Cholesterol Calculated 50 mg/dL (<100); Potassium 4.7 mmol/L (3.4-5.1); Sodium 132 mmol/L (137-145); Triglycerides 81 mg/dL (35-150)
[2025-05-22 08:59] LABS: Hep C Virus Ab w/Reflex Quant NEGATIVE s/c (NEGATIVE)
== END ==
PROVIDERS: PCP Family Medicine; Referring Provider Family Medicine; Visit Provider Family Medicine
DX: E78.2 Mixed hyperlipidemia (principal); I10 Essential (primary) hypertension
CPT/HCPCS: 36415; 80053; 80061; 82043; 82570; 85027; 86803